=== PATIENT | female | born 1975 | race Hispanic/Latino ===

== ENCOUNTER 2017-07-06 17:51 | Emergency (ER) | payer SELFPAY ==
[2017-07-06] MEDS ORDERED: Ibuprofen 800 MG TAB ONE (19:00)
--- NOTE | 2017-07-06 19:32 | RAD ---
EXAM: LEFT ANKLE THREE VIEWS 07/06/17 COMPARISON: 05/13/14 HISTORY: Posterior ankle pain. History of gout. FINDINGS: Stable soft tissue prominence. Ankle mortise is intact. Joint spaces are preserved. No significant e rosive or destructive changes in the ankle joint. IMPRESSION: No significant change. POS: [facility]
== END 2017-07-06 19:22 | disposition home or self-care (01) ==
LOC: SCSER 17:51
DX: S93.402A Sprain of unspecified ligament of left ankle, initial encounter (principal); M10.9 Gout, unspecified; Z87.891 Personal history of nicotine dependence; X58.XXXA Exposure to other specified factors, initial encounter
CPT/HCPCS: 29515

== ENCOUNTER 2017-07-10 10:28 | Emergency (ER) | payer SELFPAY ==
[2017-07-10 11:54] LABS: #Basophils 0.1 thou/uL (0.0-0.2); #Eosinphils 0.2 thou/uL (0.0-0.7); #Lymphocytes 5.7 thou/uL (1.20-3.40); #Monocytes 0.9 thou/uL (0.11-0.59); #Neutrophils 4.8 thou/uL (1.40-6.50); %Basophils 0.9 % (0.0-1.0); %Eosinophils 1.4 % (0.0-10.0); %Monocytes 7.5 % (0.0-10.0); Hematocrit 38.1 % (36.0-47.0); Mean Platelet Volume 7.4 fL (7.4-10.4); Red Blood Cell (RBC) Count 4.43 mill/uL (4.20-5.40); White Blood Cell (WBC) Count 11.6 thou/uL (4.8-10.8)
[2017-07-10 12:02] LABS: PTT 24.6 SEC (22.9-36.1); Prothrombin Time 13.6 SEC (12.0-14.7)
[2017-07-10 12:16] LABS: ALT (SGPT) 15 U/L (8-55); AST (SGOT) 18 U/L (5-34); Alkaline Phosphatase 85 U/L (40-150); Anion Gap 11 mmol/L (10-20); BUN (Urea Nitrogen) 15 mg/dL (7.0-18.7); Bilirubin, Total 0.4 mg/dL (0.2-1.2); Calc. Creatinine Clearance 0 mL/min (70-130); Calcium 8.4 mg/dL (7.8-10.44); Carbon Dioxide 24 mmol/L (22-29); Chloride 107 mmol/L (98-107); Estimated GFR-MDRD Greater than 90; Globulin 3.7 g/dL (2.4-3.5); Protein, Total 7.2 g/dL (6.0-8.3)
[2017-07-10] MEDS ORDERED: metroNIDAZOLE 250 MG TAB ONE (13:21)
[2017-07-10] MEDS ORDERED: Ciprofloxacin 500 MG TAB ONE (13:21)
[2017-07-10 13:46] LABS: Bilirubin Negative (Negative); Blood, Urine Negative (Negative); Glucose, Urine (Dipstick) 100 mg/dL (Negative); Ketone, Urine Negative (Negative); Nitrite Negative (Negative); Protein, Urine (Dipstick) Trace mg/dL (Neg-Trace); Urobilinogen 0.2 mg/dL (0.2-1.0)
[2017-07-10 13:50] LABS: Bacteria/HPF 1+ HPF (None Seen); Hyaline Casts/LPF 7-10 HYALINE CAST LPF (0-3 Hyaline)
== END 2017-07-10 13:45 | disposition home or self-care (01) ==
LOC: ERS 10:28
DX: K52.9 Noninfective gastroenteritis and colitis, unspecified (principal); K62.5 Hemorrhage of anus and rectum; Z87.891 Personal history of nicotine dependence
CPT/HCPCS: 80053; 81003; 81015; 82274; 84703; 85025; 85610; 85730; 86850; 86900; 86901; 87015; 87045; 87046; 87449; 87899; 99284

== ENCOUNTER 2017-09-28 08:57 | Emergency (ER) | payer SELFPAY ==
[2017-09-28 09:44] LABS: Hemoglobin 13.6 g/dL (12.0-16.0); Mean Corpuscular HGB CONC 32.7 g/dL (32.0-36.0); Mean Corpuscular Volume 85.4 fl (81.0-99.0); Mean Platelet Volume 7.5 fL (7.4-10.4); Platelet Count 268 thou/uL (130-400); RBC Distribution Width 13.3 % (11.5-14.5); Red Blood Cell (RBC) Count 4.85 mill/uL (4.20-5.40); White Blood Cell (WBC) Count 11.2 thou/uL (4.8-10.8)
[2017-09-28 09:54] LABS: Bilirubin Negative (Negative); Blood, Urine Large (Negative); Clarity CLOUDY (Clear); Glucose, Urine (Dipstick) Negative (Negative); Leukocyte Trace (Negative); Nitrite Negative (Negative); Protein, Urine (Dipstick) Trace mg/dL (Neg-Trace); Specific Gravity, Urine 1.029 (1.002-1.036)
[2017-09-28 09:56] LABS: Pregnancy Test - Urine (BHCG) Negative (Negative); Pregu Control Background? CLEAR/WHITE (CLR/WHITE); Pregu Control Bar Appear? YES (CONTROL BAR); Specific Gravity 1.029 (1.002-1.036)
[2017-09-28 09:59] LABS: Bacteria/HPF 1+ HPF (None Seen); Hyaline Casts/LPF 0-3 HYALINE CAST LPF (0-3 Hyaline); Pathc Cast-AUWi Flag 0.54 (0-2.49); RBC/HPF GREATER THAN 50-TNTC HPF (0-3)
[2017-09-28 10:02] LABS: ALT (SGPT) 18 U/L (8-55); AST (SGOT) 18 U/L (5-34); Albumin 3.9 g/dL (3.5-5.0); Alkaline Phosphatase 101 U/L (40-150); Anion Gap 12 mmol/L (10-20); BUN (Urea Nitrogen) 13 mg/dL (7.0-18.7); Bilirubin, Total 0.8 mg/dL (0.2-1.2); Calc. Creatinine Clearance 0 mL/min (70-130); Calcium 8.8 mg/dL (7.8-10.44); Carbon Dioxide 23 mmol/L (22-29); Chloride 107 mmol/L (98-107); Estimated GFR-MDRD Greater than 90; Globulin 3.8 g/dL (2.4-3.5); Glucose 147 mg/dL (70-105); Lipase 10 U/L (8-78); Potassium 3.9 mmol/L (3.5-5.1); Protein, Total 7.7 g/dL (6.0-8.3); Sodium 138 mmol/L (136-145)
[2017-09-28 10:07] LABS: Band 4 % (5-11); Eosinophils 2 % (0-10); Lymphocytes 42 % (21-51); MDiff Complete? YES; Monocytes 5 % (0-10); Neutrophil 39 % (42-75); RBC Morphology Normal; Reactive Lymphocytes 8 % (0-10)
--- NOTE | 2017-09-28 10:30 | CT ---
ABDOMEN AND PELVIC CT SCAN WITHOUT IV CONTRAST: HISTORY: A 41-year-old female with abdominal pain. COMPARISON: 03/28/17. FINDINGS: The lung bases are clear. Status post cholecystectomy. Visualized liver, pancreas, spleen, and adre nal glands are unremarkable. No renal calculus or acute obstruction. Normal-appearing appendix. Uterus and adnexa show no significant acute process. Colonic diverticulosis without acute diverticu litis. IMPRESSION: No significant acute process in the abdomen or pelvis. Stable from 03/28/17. POS: [facility]
[2017-09-28 10:42] LABS: ALT (SGPT) 21 U/L (8-55); AST (SGOT) 21 U/L (5-34); Albumin 3.9 g/dL (3.5-5.0); Alkaline Phosphatase 100 U/L (40-150); Bilirubin, Direct 0.2 mg/dL (0.1-0.3); Bilirubin, Total 0.7 mg/dL (0.2-1.2); Protein, Total 7.6 g/dL (6.0-8.3)
[2017-09-28] MEDS ORDERED: Ondansetron HCl/PF 4 MG/2 ML Vial ONE (10:50)
[2017-09-28] MEDS ORDERED: Ketorolac Tromethamine 30 MG/ML VIAL ONE (10:50)
== END 2017-09-28 11:58 | disposition home or self-care (01) ==
LOC: ERS 08:57
DX: N30.01 Acute cystitis with hematuria (principal); E66.9 Obesity, unspecified; M10.9 Gout, unspecified; Z87.891 Personal history of nicotine dependence
CPT/HCPCS: 36415; 74176; 80053; 81003; 81015; 81025; 83690; 85025; 94760; J1885; J2405

== ENCOUNTER 2017-11-09 14:19 | Emergency (ER) | payer SELFPAY ==
[2017-11-09 15:12] LABS: ALT (SGPT) 20 U/L (8-55); AST (SGOT) 21 U/L (5-34); Albumin 3.8 g/dL (3.5-5.0); Alkaline Phosphatase 84 U/L (40-150); Anion Gap 13 mmol/L (10-20); Anisocytosis SLIGHT = 6-15 cells (100X) (0-5/hpf); BUN (Urea Nitrogen) 9 mg/dL (7.0-18.7); Band 3 % (5-11); Bilirubin, Total 0.7 mg/dL (0.2-1.2); Calc. Creatinine Clearance 0 mL/min (70-130); Carbon Dioxide 24 mmol/L (22-29); Chloride 106 mmol/L (98-107); Eosinophils 3 % (0-10); Estimated GFR-MDRD Greater than 90; Globulin 3.5 g/dL (2.4-3.5); Glucose 164 mg/dL (70-105); Hemoglobin 12.6 g/dL (12.0-16.0); Lipase 10 U/L (8-78); Lymphocytes 52 % (21-51); MDiff Complete? YES; Mean Corpuscular HGB CONC 32.6 g/dL (32.0-36.0); Mean Corpuscular Hemoglobin 26.9 pg (27.0-31.0); Mean Corpuscular Volume 82.4 fl (81.0-99.0); Mean Platelet Volume 8.5 fL (7.4-10.4); Monocytes 9 % (0-10); Neutrophil 27 % (42-75); PLT Morphology Comment Appears Adequate; Platelet Count 244 thou/uL (130-400); Potassium 3.8 mmol/L (3.5-5.1); Protein, Total 7.3 g/dL (6.0-8.3); RBC Distribution Width 13.1 % (11.5-14.5); Reactive Lymphocytes 6 % (0-10); Red Blood Cell (RBC) Count 4.69 mill/uL (4.20-5.40); Sodium 139 mmol/L (136-145); White Blood Cell (WBC) Count 9.9 thou/uL (4.8-10.8)
--- NOTE | 2017-11-09 15:24 | CT ---
ABDOMEN AND PELVIC CT SCAN WITHOUT IV CONTRAST: Date: 11/09/17 HISTORY: 42-year-old female with history of left upper quadrant pain for 2 days. COMPARISON: 09/28/17. FINDINGS: There is a small, stable, subpleural nodule adjacent to the minor fissure. Status post cholecystectom y. Liver, pancreas, and spleen appear unremarkable. Adrenal glands are unremarkable. Normal appearing appendix. No renal calculus or obstruction. No abscess, adenopathy, or abnormal fluid collection. Occasional diverticulosis of the sigmoid colon without diverticulitis. Upper range of normal to mini pedro enlarged uterus. IMPRESSION: Status post cholecystectomy. Upper range of normal to minimally enlarged uterus, but stable from prio r study. Normal appearing appendix. No renal calculus or obstruction. Some bilateral SI joint scle rosis, stable. POS: [facility]
== END 2017-11-09 15:30 | disposition home or self-care (01) ==
LOC: SCSER 14:19
DX: K59.00 Constipation, unspecified (principal); M10.9 Gout, unspecified; Z87.891 Personal history of nicotine dependence
CPT/HCPCS: 74176; 80053; 83690; 85025

== ENCOUNTER 2018-02-25 05:51 | Emergency (ER) | payer SELFPAY ==
[2018-02-25 06:16] LABS: Bilirubin Negative (Negative); Blood, Urine Negative (Negative); Clarity Clear (Clear); Glucose, Urine (Dipstick) Negative (Negative); Leukocyte Moderate (Negative); Nitrite Negative (Negative); Protein, Urine (Dipstick) Trace mg/dL (Neg-Trace); Specific Gravity, Urine 1.015 (1.005-1.030); Urobilinogen 0.2 mg/dL (0.2-1.0)
[2018-02-25 06:22] LABS: RBC/HPF 0-3 HPF (0-3)
[2018-02-25 06:23] LABS: Bacteria/HPF 2+ HPF (None Seen); Hyaline Casts/LPF 0-3 HYALINE CAST LPF (0-3 Hyaline)
[2018-02-25 06:27] LABS: Pregu Control Background? CLEAR/WHITE (CLR/WHITE); Pregu Control Bar Appear? YES (CONTROL BAR); Specific Gravity 1.015 (1.002-1.036)
[2018-02-25 06:29] LABS: Pregnancy Test - Urine (BHCG) Negative (Negative)
[2018-02-25 06:51] LABS: #Basophils 0.1 thou/uL (0.0-0.2); #Eosinphils 0.2 thou/uL (0.0-0.7); #Lymphocytes 4.2 thou/uL (1.20-3.40); #Monocytes 0.6 thou/uL (0.11-0.59); #Neutrophils 4.1 thou/uL (1.40-6.50); %Basophils 1.1 % (0.0-1.0); %Eosinophils 2.4 % (0.0-10.0); %Lymphocytes 45.6 % (21.0-51.0); %Monocytes 6.4 % (0.0-10.0); %Neutrophils 44.5 % (42.0-75.0); Hemoglobin 13.1 g/dL (12.0-16.0); Mean Corpuscular HGB CONC 34.1 g/dL (32.0-36.0); Mean Corpuscular Hemoglobin 27.9 pg (27.0-31.0); Mean Corpuscular Volume 81.8 fL (78.0-98.0); Mean Platelet Volume 8.4 fL (7.4-10.4); Platelet Count 222 thou/uL (130-400); RBC Distribution Width 12.7 % (11.5-14.5); Red Blood Cell (RBC) Count 4.71 mill/uL (4.20-5.40); White Blood Cell (WBC) Count 9.2 thou/uL (4.8-10.8)
[2018-02-25 07:00] LABS: ALT (SGPT) 19 U/L (8-55); AST (SGOT) 15 U/L (5-34); Albumin 3.6 g/dL (3.5-5.0); Alkaline Phosphatase 98 U/L (40-150); Anion Gap 12 mmol/L (10-20); BUN (Urea Nitrogen) 16 mg/dL (7.0-18.7); Bilirubin, Total 0.5 mg/dL (0.2-1.2); CKMB 0.5 ng/mL (0-6.6); Calc. Creatinine Clearance 0 mL/min (70-130); Calcium 8.6 mg/dL (7.8-10.44); Carbon Dioxide 24 mmol/L (22-29); Chloride 105 mmol/L (98-107); Estimated GFR-MDRD Greater than 90; Globulin 3.5 g/dL (2.4-3.5); Glucose 221 mg/dL (70-105); Lipase 19 U/L (8-78); Protein, Total 7.1 g/dL (6.0-8.3); Sodium 137 mmol/L (136-145); Troponin I Less than 0.010 ng/mL (< 0.028)
[2018-02-25] MEDS ORDERED: Dicyclomine 20 MG TAB ONE (07:00)
[2018-02-25] MEDS ORDERED: Ondansetron HCl/PF 4 MG/2 ML Vial ONE (07:16)
[2018-02-25] MEDS ORDERED: Metoclopramide HCl 10 MG/2 ML VIAL ONE (07:32)
--- NOTE | 2018-02-25 08:07 | RAD ---
CHEST 1 VIEW AND ABDOMEN 2 VIEWS: HISTORY: Chest pain and abdominal pain. FINDINGS: The heart size is normal. The lungs are expanded without focal areas of consolidation, pneumothorace s, or pleural effusions. There are postop changes of cholecystectomy. No free air or differential fluid levels are seen. The bowel gas pattern is unremarkable. No suspicious calcifications are identified. POS: [facility]
--- NOTE | 2018-02-25 08:08 | CT ---
CT ABDOMEN AND PELVIS WITH CONTRAST: Date: 02/25/18 Multiple axial tomograms obtained through abdomen and pelvis with IV enhancement. INDICATION: Lower abdominal pain. Comparison made to recent CT abdomen and pelvis dated 11/09/17. FINDINGS: Lung bases clear. Liver, spleen, and pancreas unremarkable. Adrenal glands normal. Stomach and duodenum appear unremark able. Kidneys are unremarkable. No hydronephrosis. Ureters and urinary bladder unremarkable. Small bowel loops appear normal. Appendix is normal. Colon unremarkable. Scattered diverticula identi fied in the left colon with no CT evidence of diverticulitis. There is a 3.7 cm right ovarian cyst present today, which is new from the prior study. Uterus is prom inent, but stable in appearance. No free fluid. Aorta is normal caliber. No adenopathy. SI joint sclerosis is again seen and has been described previ ously. IMPRESSION: 1. Right ovarian cyst measuring 3.5-4.0 cm. 2. No other evidence of acute finding or significant interval change from the prior study. POS: [facility]
[2018-02-25] MEDS ORDERED: Ketorolac Tromethamine 30 MG/ML VIAL ONE (08:11)
[2018-02-25] MEDS ORDERED: Iopamidol 370 76% 100 ML VIAL ONE (09:00)
== END 2018-02-25 08:20 | disposition home or self-care (01) ==
LOC: SCSER 05:51
DX: N83.201 Unspecified ovarian cyst, right side (principal); M10.9 Gout, unspecified; Z87.891 Personal history of nicotine dependence
CPT/HCPCS: 74022; 74177; 80053; 81003; 81015; 81025; 82150; 82553; 83690; 84484; 85025; 96365; 96375; J1885; J2405; J2765

== ENCOUNTER 2018-03-09 23:47 | Emergency (ER) | payer SELFPAY ==
[2018-03-10 00:31] LABS: #Basophils 0.1 thou/uL (0.0-0.2); #Eosinphils 0.2 thou/uL (0.0-0.7); #Lymphocytes 3.9 thou/uL (1.20-3.40); #Monocytes 0.7 thou/uL (0.11-0.59); #Neutrophils 4.5 thou/uL (1.40-6.50); %Basophils 0.7 % (0.0-1.0); %Eosinophils 2.4 % (0.0-10.0); %Lymphocytes 41.4 % (21.0-51.0); %Monocytes 7.1 % (0.0-10.0); %Neutrophils 48.5 % (42.0-75.0); Hemoglobin 13.1 g/dL (12.0-16.0); Mean Corpuscular HGB CONC 35.3 g/dL (32.0-36.0); Mean Corpuscular Hemoglobin 29.5 pg (27.0-31.0); Mean Corpuscular Volume 83.7 fL (78.0-98.0); Mean Platelet Volume 7.5 fL (7.4-10.4); Platelet Count 218 thou/uL (130-400); RBC Distribution Width 12.8 % (11.5-14.5); Red Blood Cell (RBC) Count 4.42 mill/uL (4.20-5.40); White Blood Cell (WBC) Count 9.4 thou/uL (4.8-10.8)
[2018-03-10] MEDS ORDERED: Nitroglycerin 0.4 MG TAB (25 Tab Bottle) ONE (00:47)
[2018-03-10 00:55] LABS: ALT (SGPT) 18 U/L (8-55); AST (SGOT) 16 U/L (5-34); Albumin 3.6 g/dL (3.5-5.0); Alkaline Phosphatase 100 U/L (40-150); Anion Gap 15 mmol/L (10-20); BUN (Urea Nitrogen) 15 mg/dL (7.0-18.7); Bilirubin, Total 0.4 mg/dL (0.2-1.2); CK (CPK) 38 U/L (29-168); Calc. Creatinine Clearance 0 mL/min (70-130); Calcium 8.8 mg/dL (7.8-10.44); Carbon Dioxide 22 mmol/L (22-29); Chloride 104 mmol/L (98-107); Estimated GFR-MDRD Greater than 90; Globulin 3.3 g/dL (2.4-3.5); Glucose 210 mg/dL (70-105); Lipase 24 U/L (8-78); Potassium 3.7 mmol/L (3.5-5.1); Protein, Total 6.9 g/dL (6.0-8.3); Sodium 137 mmol/L (136-145)
[2018-03-10 00:58] LABS: CKMB 0.6 ng/mL (0-6.6); Troponin I Less than 0.010 ng/mL (< 0.028)
[2018-03-10 04:14] LABS: Troponin I Less than 0.010 ng/mL (< 0.028)
--- NOTE | 2018-03-10 11:04 | RAD ---
PORTABLE CHEST: Date: 03-10-18 Provided Clinical History: Chest pain. FINDINGS: Comparison 10-31-16. Cardiac and mediastinal silhouette is within normal limits. Lungs appear clear. N o pleural fluid or pneumothorax apparent. IMPRESSION: No evidence for an acute cardiopulmonary process. POS: [facility]
--- NOTE | 2018-03-21 14:29 | EKG ---
Test Reason : REPEAT Blood Pressure : / mmHG Vent. Rate : 084 BPM Atrial Rate : 084 BPM P-R Int : 136 ms QRS Dur : 088 ms QT Int : 376 ms P-R-T Axes : 030 -01 030 degrees QTc Int : 444 ms Normal sinus rhythm Normal ECG Confirmed by ELVER GIBBS MD ([id number]), fashion editor MELISSA DE SANTIAGO ([id number]) on 03/21/2018 2:28:37 PM Referred By: JUAN GIBBS Confirmed By:ELVER GIBBS MD
--- NOTE | 2018-03-21 14:30 | EKG ---
Test Reason : CP Blood Pressure : / mmHG Vent. Rate : 090 BPM Atrial Rate : 090 BPM P-R Int : 128 ms QRS Dur : 084 ms QT Int : 356 ms P-R-T Axes : 016 -08 014 degrees QTc Int : 435 ms Normal sinus rhythm Nonspecific T wave changes Cannot rule out Anterior infarct , age undetermined Abnormal ECG Confirmed by BERNIE NARAYAN, ELVER ([id number]), photo editor MELISSA DE SANTIAGO ([id number]) on 03/21/2018 2:29:48 PM Referred By: Confirmed By:ELVER GIBBS MD
== END 2018-03-10 04:33 | disposition home or self-care (01) ==
LOC: ERS 23:47
DX: R07.9 Chest pain, unspecified (principal); E11.9 Type 2 diabetes mellitus without complications; Z87.891 Personal history of nicotine dependence; Z79.899 Other long term (current) drug therapy; Z79.84 Long term (current) use of oral hypoglycemic drugs
CPT/HCPCS: 36415; 71045; 80053; 82553; 83690; 84484; 85025; 93005

== ENCOUNTER 2018-04-02 15:23 | Outpatient (CLI) | payer MEDICAID | END 2018-04-02 15:24 | disposition home or self-care (01) | LOC: BICULT 15:23 | PROVIDERS: ATTEND Family Medicine | DX: N83.201 Unspecified ovarian cyst, right side (principal); Z12.31 Encounter for screening mammogram for malignant neoplasm of breast | CPT/HCPCS: 76856 ==

== ENCOUNTER 2018-04-04 14:41 | Outpatient (CLI) | payer MEDICAID ==
--- NOTE | 2018-04-04 15:30 | MMO ---
BILATERAL MAMMOGRAMS: HISTORY: Screening mammography. COMPARISON: Baseline study. FINDINGS: Heterogeneously dense fibroglandular tissue. No dominant mass or suspicious calcifications. The suzanne dy was evaluated with the assistance of computer aided detection. IMPRESSION: BI-RADS Category 1-Negative. Suggest routine followup. POS: [facility]
== END 2018-04-04 14:42 | disposition home or self-care (01) ==
LOC: SCSMAMMO 14:41
PROVIDERS: ATTEND Family Medicine
DX: Z12.31 Encounter for screening mammogram for malignant neoplasm of breast (principal)
CPT/HCPCS: 77067

== ENCOUNTER 2018-05-26 12:10 | Emergency (ER) | payer MEDICAID, SELFPAY ==
[2018-05-26 12:56] LABS: Bilirubin Negative (Negative); Blood, Urine Negative (Negative); Clarity CLEAR (Clear); Glucose, Urine (Dipstick) 250 mg/dL (Negative); Leukocyte Small (Negative); Nitrite Negative (Negative); Protein, Urine (Dipstick) Negative (Neg-Trace); Specific Gravity, Urine 1.019 (1.002-1.036); Urobilinogen 0.2 mg/dL (0.2-1.0); pH, Urine 5.5 (5.0-9.0)
[2018-05-26 12:58] LABS: Bacteria/HPF None Seen HPF (None Seen); Hyaline Casts/LPF 0-3 HYALINE CAST LPF (0-3 Hyaline); Pathc Cast-AUWi Flag 0.29 (0-2.49); RBC/HPF 0-3 HPF (0-3); Squamous Epithelial 0-3 HPF (0-3)
[2018-05-26 13:32] LABS: ALT (SGPT) 16 U/L (8-55); AST (SGOT) 19 U/L (5-34); Albumin 3.6 g/dL (3.5-5.0); Alkaline Phosphatase 95 U/L (40-150); Anion Gap 11 mmol/L (10-20); BUN (Urea Nitrogen) 11 mg/dL (7.0-18.7); Bilirubin, Total 0.6 mg/dL (0.2-1.2); Calc. Creatinine Clearance 0 mL/min (70-130); Calcium 8.5 mg/dL (7.8-10.44); Carbon Dioxide 21 mmol/L (22-29); Chloride 106 mmol/L (98-107); Estimated GFR-MDRD Greater than 90; Globulin 3.8 g/dL (2.4-3.5); Glucose 237 mg/dL (70-105); Magnesium 1.9 mg/dL (1.6-2.6); Potassium 4.2 mmol/L (3.5-5.1); Protein, Total 7.4 g/dL (6.0-8.3); Sodium 134 mmol/L (136-145)
[2018-05-26 13:51] LABS: #Basophils 0.1 thou/uL (0.0-0.2); #Eosinphils 0.2 thou/uL (0.0-0.7); #Lymphocytes 4.1 thou/uL (1.20-3.40); #Monocytes 0.5 thou/uL (0.11-0.59); #Neutrophils 4.3 thou/uL (1.40-6.50); %Basophils 0.8 % (0.0-1.0); %Eosinophils 1.9 % (0.0-10.0); %Lymphocytes 44.2 % (21.0-51.0); %Monocytes 5.9 % (0.0-10.0); %Neutrophils 47.2 % (42.0-75.0); Hemoglobin 12.4 g/dL (12.0-16.0); Mean Corpuscular HGB CONC 32.6 g/dL (32.0-36.0); Mean Corpuscular Hemoglobin 28.6 pg (27.0-31.0); Mean Corpuscular Volume 87.6 fL (78.0-98.0); Mean Platelet Volume 7.3 fL (7.4-10.4); Platelet Count 222 thou/uL (130-400); RBC Distribution Width 12.9 % (11.5-14.5); Red Blood Cell (RBC) Count 4.33 mill/uL (4.20-5.40); White Blood Cell (WBC) Count 9.2 thou/uL (4.8-10.8)
[2018-05-26 14:17] LABS: CKMB 0.5 ng/mL (0-6.6); Troponin I Less than 0.010 ng/mL (< 0.028)
== END 2018-05-26 14:50 | disposition home or self-care (01) ==
LOC: ERS 12:10
DX: E11.65 Type 2 diabetes mellitus with hyperglycemia (principal); N39.0 Urinary tract infection, site not specified; M10.9 Gout, unspecified; Z87.891 Personal history of nicotine dependence; Z79.84 Long term (current) use of oral hypoglycemic drugs
CPT/HCPCS: 36415; 36416; 80053; 81003; 81015; 82553; 83735; 84484; 85025; 87086; 93005; 96360

== ENCOUNTER 2018-11-26 21:32 | Emergency (ER) | payer SELFPAY ==
[2018-11-26] MEDS ORDERED: Dexamethasone 4 mg/ml Vial ONE (22:24)
[2018-11-26] MEDS ORDERED: Sodium Chloride 0.9% 100 ML ONE (22:24)
[2018-11-26] MEDS ORDERED: Ketorolac Tromethamine 30 MG/ML VIAL ONE (22:24)
[2018-11-26] MEDS ORDERED: cefTRIAXone\\ROCEPHIN 1 GM VIAL ONE (22:24)
== END 2018-11-26 23:19 | disposition home or self-care (01) ==
LOC: ERS 21:32
DX: J02.9 Acute pharyngitis, unspecified (principal); E11.9 Type 2 diabetes mellitus without complications; M10.9 Gout, unspecified; Z87.891 Personal history of nicotine dependence; Z79.84 Long term (current) use of oral hypoglycemic drugs
CPT/HCPCS: 87081; 87430; 96365; 96375; J0696; J1100; J1885; J7050

== ENCOUNTER 2018-12-16 13:03 | Emergency (ER) | payer SELFPAY ==
--- NOTE | 2018-12-16 13:59 | RAD ---
LEFT FOOT 3 VIEWS: HISTORY: Swelling and joint pain, left foot pain. FINDINGS: No fracture, dislocation, or bony destruction. No periosteal reaction is seen. No radiopaque foreig n body is identified. POS: [facility]
--- NOTE | 2018-12-16 14:00 | RAD ---
LEFT HAND 3 VIEWS: HISTORY: Left ankle pain. FINDINGS: No fracture or dislocation or bony destruction is seen. The ankle mortise is maintained. A tiny dennis caneal spur is noted. POS: [facility]
[2018-12-16 14:16] LABS: #Basophils 0.1 thou/uL (0.0-0.2); #Eosinphils 0.2 thou/uL (0.0-0.7); #Lymphocytes 4.2 thou/uL (1.20-3.40); #Monocytes 0.5 thou/uL (0.11-0.59); #Neutrophils 5.1 thou/uL (1.40-6.50); %Basophils 0.6 % (0.0-1.0); %Eosinophils 1.5 % (0.0-10.0); %Lymphocytes 41.7 % (21.0-51.0); %Monocytes 5.3 % (0.0-10.0); %Neutrophils 50.9 % (42.0-75.0); Hemoglobin 12.3 g/dL (12.0-16.0); Mean Corpuscular HGB CONC 32.3 g/dL (32.0-36.0); Mean Corpuscular Hemoglobin 28.2 pg (27.0-31.0); Mean Corpuscular Volume 87.2 fL (78.0-98.0); Mean Platelet Volume 7.6 fL (7.4-10.4); Platelet Count 253 thou/uL (130-400); RBC Distribution Width 12.9 % (11.5-14.5); Red Blood Cell (RBC) Count 4.38 mill/uL (4.20-5.40); White Blood Cell (WBC) Count 10.1 thou/uL (4.8-10.8)
[2018-12-16 16:19] LABS: BHCG - Serum Negative (NEGATIVE); Pregs Control Background? CLEAR/WHITE (CLR/WHITE); Pregs Control Bar Appear? YES (CONTROL BAR)
== END 2018-12-16 16:46 | disposition home or self-care (01) ==
LOC: ERS 13:03
DX: N93.9 Abnormal uterine and vaginal bleeding, unspecified (principal); M79.672 Pain in left foot; E11.9 Type 2 diabetes mellitus without complications; Z87.891 Personal history of nicotine dependence; Z79.84 Long term (current) use of oral hypoglycemic drugs
CPT/HCPCS: 36415; 84703; 85025

== ENCOUNTER 2024-07-18 11:15 | Emergency (ER) | payer SELFPAY ==
[2024-07-18] MEDS ORDERED: Ibuprofen 800 MG TAB ONE (11:30)
== END 2024-07-18 13:08 | disposition home or self-care (01) ==
LOC: ERS 11:15
DX: B34.9 Viral infection, unspecified (principal); E11.9 Type 2 diabetes mellitus without complications; F17.210 Nicotine dependence, cigarettes, uncomplicated
CPT/HCPCS: 71046; 87081; 87428; 87430

== ENCOUNTER 2024-08-21 03:16 | Emergency (ER) | payer SELFPAY ==
[2024-08-21] MEDS ORDERED: Acetaminophen 500 MG TAB ONE (03:31)
[2024-08-21] MEDS ORDERED: Ketorolac Tromethamine 30 MG (1 mL) VIAL ONE (04:11)
== END 2024-08-21 05:08 | disposition home or self-care (01) ==
LOC: ERS 03:16
DX: M25.472 Effusion, left ankle (principal); E11.9 Type 2 diabetes mellitus without complications; F17.210 Nicotine dependence, cigarettes, uncomplicated; Z55.6 Problems related to health literacy
CPT/HCPCS: 96372; J1885

== ENCOUNTER 2025-06-30 16:26 | Emergency (ER) | payer MEDICAID, SELFPAY ==
[2025-06-30] MEDS ORDERED: HYDROcodone/Acetaminophen 5/325 mg Tablet ONE (17:40)
== END 2025-06-30 20:29 ==
LOC: ERS 16:26
DX: S09.90XA Unspecified injury of head, initial encounter (principal); S39.012A Strain of muscle, fascia and tendon of lower back, initial encounter; S46.912A Strain of unspecified muscle, fascia and tendon at shoulder and upper arm level, left arm, initial encounter; Y04.8XXA Assault by other bodily force, initial encounter
CPT/HCPCS: 70450; 72072; 72100; 72125